=== PATIENT | female | born 1970 | race Caucasian/White ===

== ENCOUNTER → 2018-10-13 | Outpatient (CLI) | payer BC ==
--- NOTE | 2018-10-13 13:01 | US ---
EXAMINATION TYPE: US kidneys/renal and bladder DATE OF EXAM: 10/13/2018 COMPARISON: NONE CLINICAL HISTORY: N18.9 Chronic kidney disease. Abnormal labs per patient EXAM MEASUREMENTS: Right Kidney: 10.9 x 5.6 x 4.3 cm Left Kidney: 10.6 x 4.4 x 4.9 cm Right Kidney: No hydronephrosis or masses seen Left Kidney: inferior echogenic lesion with twinkling artifact- 1.1 x 0.9 cm likely representing a ca lculus Bladder: distended, wnl as visualized Bilateral jets not seen There is no evidence for hydronephrosis at this point in time. No masses are identified. Cortical me dullary differentiation is maintained bilaterally. No cortical renal thinning is seen. The urinary b ladder is anechoic. Bilateral ureteral jets are seen. IMPRESSION: Probable nonobstructing 1.1 cm left lower pole renal calculus. No hydronephrosis of either kidneys. N o sonographic sequela of medical renal disease at this time.
== END | disposition home or self-care (01) ==
LOC: RADUSWWP 12:03
PROVIDERS: ATTEND Family Medicine
DX: N18.9 Chronic kidney disease, unspecified (principal)
CPT/HCPCS: 76770

== ENCOUNTER → 2021-08-04 | Outpatient (CLI) | payer OTHER | END | disposition home or self-care (01) | LOC: RADMRIMAIN 18:33 | PROVIDERS: ATTEND Family Medicine | DX: Z53.9 Procedure and treatment not carried out, unspecified reason (principal) ==

== ENCOUNTER 2023-01-09 07:04 | Day surgery (SDC) | payer OTHER ==
[~2023-01-09 07:04] MED LIST: ACETAMINOPHEN TAB 500 MG TAB PO PRN; DEXAMETHASONE SOD PHOSPHATE 4 MG/ML 1 ML VIAL IV ONE; HEPARIN SODIUM,PORCINE/PF 5,000 UNIT/0.5 ML SYRINGE SQ PRN; HYDROmorphone 0.5 MG/0.5 ML SYRINGE IVP PRN; LACTATED RINGERS 1,000 ML IV SCH; LIDOCAINE 1% (10MG/ML) FOR IV START INTRADERMA PRN; MIDAZOLAM 2 MG/2 ML VIAL IV PRN; ONDANSETRON 4 MG/2 ML VIAL IVP ONE; Pre Op ABX Message 1 EACH MISC MISCELLANE ONE
[2023-01-09] MEDS ORDERED: ONDANSETRON 4 MG/2 ML VIAL ONE (07:32)
[2023-01-09 07:41] LABS: Glucose,Whole Blood 108 mg/dL (70-110)
[2023-01-09] MEDS ORDERED: MIDAZOLAM 2 MG/2 ML VIAL IVP ONE ×2 (07:57→08:03)
[2023-01-09] MEDS ORDERED: LIDOCAINE 4% LTA KIT (4 ML) TOPICAL ONE (08:27)
[2023-01-09] MEDS ORDERED: fentaNYL (PF) 50 MCG/ML 2 ML AMP ONE (08:27)
[2023-01-09] MEDS ORDERED: ePHEDrine 50 MG/ML 1 ML VIAL ONE (08:27)
[2023-01-09] MEDS ORDERED: PROPOFOL 10 MG/ML 20 ML VIAL IV ONE (08:27)
[2023-01-09] MEDS ORDERED: SUCCINYLCHOLINE CHLORIDE 200 MG/10 ML VIAL IV ONE (08:27)
[2023-01-09] MEDS ORDERED: MIDAZOLAM 2 MG/2 ML VIAL ONE (08:27)
[2023-01-09] MEDS ORDERED: LIDOCAINE 2% INJ 20 MG/ML (2 ML VIAL) ONE (08:27)
[2023-01-09] MEDS ORDERED: WATER FOR INJECTION, STERILE 10 ML VIAL IV ONE (08:27)
[2023-01-09] MEDS ORDERED: BUPIVACAIN-EPI 0.5%-1:200,000 30 ML VIAL SQ ONE (08:32)
--- NOTE | 2023-01-09 09:12 | P.OP ---
Date of Procedure: 01/09/23 Preoperative Diagnosis: Anal fistula Postoperative Diagnosis: Anal fistula Procedure(s) Performed: Excision of anal fistula Anesthesia: HIMANSHU Surgeon: Dev Azevedo Estimated Blood Loss (ml): 5 Pathology: none sent Condition: stable Disposition: PACU Description of Procedure: The patient's placed the operative table in the prone jackknife position. Her anus was prepped and draped usual sterile fashion. She received general anesthesia. At the 9 o'clock position the anus there appeared to be evidence of anal fistula. There is a purulent drainage seen. The intertransverse anus. The anal probe was then placed into the fistula tract. And the fistula tract was then unroofed using left cautery. Hemostasis was achieved. The examination of the remaining anus reveals no other fistulas. There was some minimal internal and external hemorrhoids. She top she will she was sent to recovery room in stable condition.
[2023-01-09 09:16] VITALS: TEMP 97
[2023-01-09 09:53] VITALS: RESP 20
[2023-01-09 10:24] VITALS: BP 118/78; PULSE 68
== END 2023-01-09 10:23 | disposition home or self-care (01) ==
LOC: OR 07:04
PROVIDERS: ATTEND Surgery
DX: K60.3 Anal fistula (principal); K64.4 Residual hemorrhoidal skin tags; K64.8 Other hemorrhoids; I10 Essential (primary) hypertension; F32.A Depression, unspecified; E11.9 Type 2 diabetes mellitus without complications; Z79.84 Long term (current) use of oral hypoglycemic drugs; E03.9 Hypothyroidism, unspecified; Z79.890 Hormone replacement therapy; E66.9 Obesity, unspecified; Z68.38 Body mass index [BMI] 38.0-38.9, adult; Z88.0 Allergy status to penicillin; Z88.6 Allergy status to analgesic agent; F17.210 Nicotine dependence, cigarettes, uncomplicated; Z98.1 Arthrodesis status; Z98.51 Tubal ligation status; Z80.1 Family history of malignant neoplasm of trachea, bronchus and lung; Z83.3 Family history of diabetes mellitus; Z98.890 Other specified postprocedural states
CPT/HCPCS: 46270; 84132; J2250; J0330; J1100; J0690; J2405; J3010; J2704; J1644; J2001